=== PATIENT | male | born 1990 | race Caucasian/White ===

== ENCOUNTER 2018-02-05 10:42 | Observation (INO) ==
[2018-02-05] MEDS ORDERED: Ketorolac Inj 30 MG/ML (IVP) Vial IV.PUSH ONE (11:08)
[2018-02-05] MEDS ORDERED: Sod Chloride 0.9% Inj 1,000 ML IV.SIG ONE (11:08)
[2018-02-05 11:23] LABS: Baso # (Auto) 0.1 th/mm3 (0.0-0.2); Baso % (Auto) 1.1 % (0.0-2.0); Eos # (Auto) 0.2 th/mm3 (0.0-0.4); Eos % (Auto) 1.7 % (0.0-4.0); Hematocrit 48.6 % (39.0-51.0); Hemoglobin 16.1 gm/dL (13.0-17.0); Lymph # (Auto) 1.7 th/mm3 (1.0-4.8); Mean Corpuscular HGB Conc 33.2 % (32.0-36.0); Mean Corpuscular Hemoglobin 30.4 pg (27.0-34.0); Mean Corpuscular Volume 91.5 fL (80.0-100.0); Mean Platelet Volume 8.4 fL (7.0-11.0); Mono # (Auto) 0.7 th/mm3 (0.0-0.9); Mono % (Auto) 7.3 % (0.0-8.0); Neut # (Auto) 7.5 th/mm3 (1.8-7.7); Neut % (Auto) 72.9 % (16.0-70.0); Platelet Count 236 th/mm3 (150-450); Red Blood Count 5.31 mil/mm3 (4.50-5.90); Red Cell Distribution Width 11.9 % (11.6-17.2); White Blood Count 10.2 th/mm3 (4.0-11.0)
[2018-02-05 11:24] LABS: Bilirubin,Urine Negative (Negative); Clarity,Urine Clear (Clear); Color,Urine Yellow (Yellw/Straw); Glucose,Urine (UA) Negative (Negative); Leukocyte Esterase,Urine Negative (Negative); Nitrite,Urine Negative (Negative); Specific Gravity,Urine 1.025 (1.002-1.035); Urobilinogen,Urine 0.2 mg/dL (Less than 2)
[2018-02-05 11:32] LABS: Chloride 105 meq/L (98-107); Sodium 139 meq/L (136-145)
[2018-02-05 11:35] LABS: Activated Partial Thrombo Time 25.9 sec (24.3-30.1); Albumin 4.1 g/dL (3.4-5.0); Anion Gap 7 meq/L (5-15); Blood Urea Nitrogen 17 mg/dL (7-18); Calcium 8.7 mg/dL (8.5-10.1); Carbon Dioxide 27.2 meq/L (21.0-32.0); Glucose,Random 85 mg/dL (74-106); INR 1.1 Ratio; Lipase 85 U/L (73-393); Prothrombin Time 10.7 sec (9.8-11.6)
[2018-02-05 11:37] LABS: Potassium 4.4 meq/L (3.5-5.1); RBC,Urine 0-3 /hpf (0-3); Squamous Epithelial Cell,Urine 0-5 /hpf (0-5)
[2018-02-05 11:38] LABS: Alanine Aminotransferase 31 U/L (12-78); Aspartate Aminotransferase 33 U/L (15-37); Glomerular Filtration Rate 73 mL/min (>89)
[2018-02-05 11:40] LABS: Total Protein 7.9 g/dL (6.4-8.2)
[2018-02-05 11:41] LABS: Alkaline Phosphatase 48 U/L (45-117)
--- NOTE | 2018-02-05 12:10 | CT ---
EXAM DATE: 02/05/2018 11:36 AM EDT AGE/SEX: 27 years / Male INDICATIONS: Right lower quadrant pain. CLINICAL DATA: This is the patient's initial encounter. Patient reports that signs and symptoms have been present for 1 day and indicates a pain score of 6/10. MEDICAL/SURGICAL HISTORY: None. None. ORAL CONTRAST: No oral contrast ingested. RADIATION DOSE: 7.30 CTDI (mGy) COMPARISON: No prior exams available for comparison. TECHNIQUE: Multiple contiguous axial images were obtained through the abdomen and pelvis following b olus infusion of 90 ml Omnipaque 350 (iohexol) nonionic water-soluble contrast as a single exam dos e. No oral contrast ingested. Using automated exposure control and adjustment of the mA and/or kV ac cording to patient size, radiation dose was kept as low as reasonably achievable to obtain optimal di agnostic quality images. DICOM format image data is available electronically for review and comparis on. FINDINGS: Lung bases are clear. Liver, gallbladder, kidneys, adrenals, spleen, pancreas, small bowel unremarkab le. There is inflammatory stranding in the right lower quadrant surrounding an abnormally dilated and thickened appendix measuring up to 1.1 cm in maximal dimension. There is free fluid in the pelvis. T he appearance is characteristic of acute appendicitis. There is no abscess. No free air. The osseous structures are intact. CONCLUSION: 1. Acute appendicitis without free air. 2. A small amount of free fluid is noted in the pelvis. Electronically signed by: James Cifuentes MD 02/05/2018 12:08 PM EDT
[2018-02-05] MEDS ORDERED: Morphine Sulfate Inj 2 MG/ML Vial IV.PUSH PRN (12:36)
--- NOTE | 2018-02-05 12:38 | ED ---
HPI General Chief complaint: Abdominal Pain Stated complaint: Rt low abd pain x 1 day Time Seen by Provider: 02/05/18 11:04 Source: patient Mode of arrival: ambulatory Limitations: no limitations History of Present Illness HPI narrative: Patient is a 27 year old male who comes in complaining of right lower quadrant abdominal pain. He says it started yesterday and has been getting progressively worse. He denies nausea or vomiting. He denies any fever or chills. He says he had a normal bowel movement. He denies any urinary symptoms. Severity is mild to moderate. Related Data Home Medications Medication Instructions Recorded Confirmed No Known Home Medications 02/05/18 02/05/18 Allergies Allergy/AdvReac Type Severity Reaction Status Date / Time Penicillins Allergy Severe unknown Verified 02/05/18 10:55 Review of Systems ROS: all other systems reviewed are negative Constitutional Denies chills and Denies fever(s) ENT Denies dizziness Cardiovascular Denies chest pain and Denies dyspnea Respiratory Denies dyspnea Gastrointestinal Reports abdominal pain, Denies nausea and Denies vomiting Musculoskeletal Denies myalgias and Denies arthralgias Integumentary/Breasts Denies sores and Denies wounds Neurologic Denies focal weakness and Denies numbness PMFSH Medical History Medical History Hx of wisdom tooth extraction (Acute) Patient denies medical problems (Acute) Surgical History Surgical History History of repair of ACL (Acute) Social History Social History Substance History: No History of Abuse Second Hand Smoke Exposure: No Smoking Status: Former smoker Tobacco Type: Cigarettes How Often Do You Have a Drink Containing Alcohol: 2 to 4 times a month Recent Travel in [facility] within the Last 8 Weeks: No Recent Out of Country Travel within the Last 8 Weeks: No Immunization History Tetanus Immunization: Unsure Exam Narrative Exam Narrative: GENERAL: Awake and alert, no acute distress. SKIN: Focused skin assessment warm/dry. No wounds or signs of infection. HEAD: Atraumatic. Normocephalic. EYES: Pupils equal and round. No scleral icterus. ENT: Mucous membranes pink and moist. NECK: Trachea midline. No JVD. CARDIOVASCULAR: Regular rate and rhythm. No murmur appreciated. RESPIRATORY: No accessory muscle use. Clear to auscultation. Breath sounds equal bilaterally. GASTROINTESTINAL: Abdomen soft, nondistended. Tender to palpation of the right lower quadrant. No rebound or guarding. MUSCULOSKELETAL: No obvious deformities. No clubbing. No cyanosis. No edema. NEUROLOGICAL: Awake and alert. No obvious cranial nerve deficits. Motor grossly within normal limits. Normal speech. PSYCHIATRIC: Appropriate mood and affect; insight and judgment normal. Course Initial Documented Vital Signs Temperature 98 F 02/05/18 10:50 Pulse Rate 64 02/05/18 10:50 Respiratory Rate 16 02/05/18 10:50 Blood Pressure 136/60 02/05/18 10:50 Pulse Oximetry 97 02/05/18 10:50 Last Documented Vital Signs Temperature 98 F 02/05/18 10:50 Pulse Rate 64 02/05/18 10:50 Respiratory Rate 16 02/05/18 10:50 Blood Pressure 136/60 02/05/18 10:50 Pulse Oximetry 97 02/05/18 10:50 Medical Decision Making MDM Narrative Medical decision making narrative: Patient is a 27-year-old male with no medical history, who comes in complaining of right lower quadrant abdominal pain. Exam shows tenderness to palpation of the right lower quadrant. IV established, labs sent. Labs show no acute abnormalities. CT abdomen pelvis performed shows acute appendicitis. Patient given Rocephin and Flagyl. Given pain medicine. I spoke with the general surgeon, Dr. Godoy, who agrees to take the patient on his service. He will try to arrange for surgery this afternoon. Medical Screen Exam Complete: Yes Emergency Medical Condition: Yes Differential Diagnosis Differential Diagnosis: Appendicitis versus colitis versus UTI Medical Records Medical records reviewed: Yes I reviewed the patient's medical records. Lab Data Lab results reviewed: Yes I reviewed the patient's lab results. Result diagrams: 02/05/18 11:10 02/05/18 11:10 Lab Results 02/05/18 02/05/18 02/05/18 Range/Units 11:10 11:10 11:10 CBC w Diff Auto diff final WBC 10.2 (4.0-11.0) th/mm3 RBC 5.31 (4.50-5.90) mil/mm3 Hgb 16.1 (13.0-17.0) gm/dL Hct 48.6 (39.0-51.0) % MCV 91.5 (80.0-100.0) fL MCH 30.4 (27.0-34.0) pg MCHC 33.2 (32.0-36.0) % RDW 11.9 (11.6-17.2) % Plt Count 236 (150-450) th/mm3 MPV 8.4 (7.0-11.0) fL Neut % (Auto) 72.9 H (16.0-70.0) % Lymph % (Auto) 17.0 (9.0-44.0) % [place] % (Auto) 7.3 (0.0-8.0) % Eos % (Auto) 1.7 (0.0-4.0) % Baso % (Auto) 1.1 (0.0-2.0) % Neut # (Auto) 7.5 (1.8-7.7) th/mm3 Lymph # (Auto) 1.7 (1.0-4.8) th/mm3 [place] # (Auto) 0.7 (0.0-0.9) th/mm3 Eos # (Auto) 0.2 (0.0-0.4) th/mm3 Baso # (Auto) 0.1 (0.0-0.2) th/mm3 WBC Differential . Differential Comment . PT 10.7 (9.8-11.6) sec INR 1.1 Ratio APTT 25.9 (24.3-30.1) sec Sodium 139 (136-145) meq/L Potassium 4.4 (3.5-5.1) meq/L Chloride 105 (98-107) meq/L Carbon Dioxide 27.2 (21.0-32.0) meq/L Anion Gap 7 (5-15) meq/L BUN 17 (7-18) mg/dL Creatinine 1.20 (0.60-1.30) mg/dL Estimated GFR 73 L (>89) mL/min Random Glucose 85 (74-106) mg/dL Calcium 8.7 (8.5-10.1) mg/dL Total Bilirubin 0.7 (0.2-1.0) mg/dL AST 33 (15-37) U/L ALT 31 (12-78) U/L Alkaline Phosphatase 48 (45-117) U/L Total Protein 7.9 (6.4-8.2) g/dL Albumin 4.1 (3.4-5.0) g/dL Lipase 85 (73-393) U/L Ur Collection Type Urine Color (Yellw/Straw) Urine Clarity (Clear) Urine pH (5.0-8.5) Ur Specific [place] (1.002-1.035) Urine Protein (Neg-Trace) mg/dL Urine Glucose (UA) (Negative) mg/dL Urine Ketones (Negative) mg/dL Urine Occult Blood (Negative) Urine Nitrate (Negative) Urine Bilirubin (Negative) Urine Urobilinogen (Less than 2) mg/dL Ur Leukocyte Esterase (Negative) Urine RBC (0-3) /hpf Ur Squamous Epith Cells (0-5) /hpf Micro UA Comment Ur Microscopic Review Urine Culture Comments 02/05/18 Range/Units 11:10 CBC w Diff WBC (4.0-11.0) th/mm3 RBC (4.50-5.90) mil/mm3 Hgb (13.0-17.0) gm/dL Hct (39.0-51.0) % MCV (80.0-100.0) fL MCH (27.0-34.0) pg MCHC (32.0-36.0) % RDW (11.6-17.2) % Plt Count (150-450) th/mm3 MPV (7.0-11.0) fL Neut % (Auto) (16.0-70.0) % Lymph % (Auto) (9.0-44.0) % [place] % (Auto) (0.0-8.0) % Eos % (Auto) (0.0-4.0) % Baso % (Auto) (0.0-2.0) % Neut # (Auto) (1.8-7.7) th/mm3 Lymph # (Auto) (1.0-4.8) th/mm3 [place] # (Auto) (0.0-0.9) th/mm3 Eos # (Auto) (0.0-0.4) th/mm3 Baso # (Auto) (0.0-0.2) th/mm3 WBC Differential Differential Comment PT (9.8-11.6) sec INR Ratio APTT (24.3-30.1) sec Sodium (136-145) meq/L Potassium (3.5-5.1) meq/L Chloride (98-107) meq/L Carbon Dioxide (21.0-32.0) meq/L Anion Gap (5-15) meq/L BUN (7-18) mg/dL Creatinine (0.60-1.30) mg/dL Estimated GFR (>89) mL/min Random Glucose (74-106) mg/dL Calcium (8.5-10.1) mg/dL Total Bilirubin (0.2-1.0) mg/dL AST (15-37) U/L ALT (12-78) U/L Alkaline Phosphatase (45-117) U/L Total Protein (6.4-8.2) g/dL Albumin (3.4-5.0) g/dL Lipase (73-393) U/L Ur Collection Type Clean catch Urine Color Yellow (Yellw/Straw) Urine Clarity Clear (Clear) Urine pH 6.0 (5.0-8.5) Ur Specific [place] 1.025 (1.002-1.035) Urine Protein Negative (Neg-Trace) mg/dL Urine Glucose (UA) Negative (Negative) mg/dL Urine Ketones Negative (Negative) mg/dL Urine Occult Blood Negative (Negative) Urine Nitrate Negative (Negative) Urine Bilirubin Negative (Negative) Urine Urobilinogen 0.2 (Less than 2) mg/dL Ur Leukocyte Esterase Negative (Negative) Urine RBC 0-3 (0-3) /hpf Ur Squamous Epith Cells 0-5 (0-5) /hpf Micro UA Comment Culture not ind Ur Microscopic Review Microscopic reviewed Urine Culture Comments Culture not ind Imaging Data Radiologist's impression: Abdomen/Pelvis CT 02/05/18 11:08 CONCLUSION: 1. Acute appendicitis without free air. 2. A small amount of free fluid is noted in the pelvis. Discharge Plan Discharge Disposition Patient Disposition: 30 Still Patient Discharge Condition Condition: Stable Discharge Details Diagnosis: Acute appendicitis Physicians Team ED Provider: Darcie Rae Primary Care Provider: Primary Care Physici,No Rxs /Orders / Referrals /Forms Prescriptions: No Action No Known Home Medications RF: 0 Status ED Status: With Doctor
[2018-02-05] MEDS ORDERED: Bupivacaine/Epinephrine PF Inj 0.5% 30 ML Vial ONE (13:33)
[2018-02-05] MEDS ORDERED: fentaNYL Citrate Inj 250 MCG/5 ML Ampul ONE (13:48)
[2018-02-05] MEDS ORDERED: Metoprolol Tartrate 25 MG Tablet PO ONE (13:53)
[2018-02-05] MEDS ORDERED: Chlorhexidine Gluconate 2% 1 Pack (2 Cloths) TOPICAL ONE (13:53)
[2018-02-05] MEDS ORDERED: Sodium Chlor 0.9% Inj 500 ML IV.SIG SCH (14:00)
[2018-02-05] MEDS ORDERED: Post-op Orders (for Pharmacy) OTHER ONE (14:42)
[2018-02-05] MEDS ORDERED: Morphine Sulfate Inj 8 MG/ML Vial IV.PUSH PRN (14:42)
[2018-02-05] MEDS ORDERED: Bisacodyl 10 MG Supp RECTAL PRN (14:42)
[2018-02-05] MEDS ORDERED: Promethazine 25 MG Supp RECTAL PRN (14:42)
[2018-02-05] MEDS ORDERED: Neostigmine Inj 5 MG/5 ML Syringe IV.PUSH ONE (14:49)
--- NOTE | 2018-02-05 15:30 | P.OP ---
- Preoperative Diagnosis (1) Acute appendicitis - Postoperative Diagnosis (1) Acute appendicitis Date of procedure: 02/05/18 Procedure: lap appy Anesthesia: GETA Surgeon: Sherif Stauffer MD Estimated blood loss (mL): 10 Pathology: other (appendix) Operation and Findings: acute appendicitis
[2018-02-05] MEDS: Sod Chloride 0.9% Inj 1,000 ML IV.CONT SCH (15:32)
[2018-02-05] MEDS: Ciprofloxacin 400 MG/200 ML 400 MG/200 ML PIGGYBACK IV.SIG SCH (16:28)
[2018-02-05] MEDS: Ketorolac Inj 30 MG/ML (IVP) Vial IV.PUSH SCH (16:33)
--- NOTE | 2018-02-05 17:47 | MP ---
cc: Sherif Stauffer MD DATE OF OPERATION: 02/05/2018 PREOPERATIVE DIAGNOSIS: Acute appendicitis. POSTOPERATIVE DIAGNOSIS: Acute appendicitis. PROCEDURE PERFORMED: Laparoscopic appendectomy. SURGEON: Sherif Stauffer MD MILK DRIER: None. ANESTHESIA: GETA. IV FLUIDS: Per anesthesia. ESTIMATED BLOOD LOSS: 10 mL. DRAINS: None. COMPLICATIONS: None. WOUND CLASSIFICATION: Clean/contaminated. SPECIMENS: Appendix. INDICATIONS: The patient is a 27-year-old male who presents with acute onset of right lower quadrant abdominal pain. The patient notes yesterday the pain got significantly worse, seen by primary care, who directed him to go to the emergency department with CT evaluation showing acute appendicitis. Decision for operative intervention. DETAILS OF PROCEDURE: The patient was taken to the operating suite, placed in supine position. He was prepped and draped in the usual sterile fashion after induction of general endotracheal anesthesia. Brief timeout was done, stating correct patient, procedure and surgical site. We were all in agreement with this. Attention was first directed to the umbilicus where local anesthetic was injected. Stab pili incision was made with a #11 blade. Veress needle placed and intra-abdominal placement confirmed with saline drop test. The abdomen was insufflated to 15 mm pneumoperitoneum. Two other ports were placed, one suprapubic, 5 mm, followed by a left lower quadrant 12 mm. The patient was placed in Trendelenburg and airplaned left. The right lower quadrant was examined. The appendix was identified, noted to be indurated and nonperforated. The appendix was grasped. Adhesions to mobilize the appendix were lysed. The base of the mesoappendix was grasped and a window was made in the base of the mesoappendix. This was done with [place] and Bovie cautery. An Endo-VANI 35 stapler was used to transect the base of the appendix. The base of mesoappendix was also transected with Endo-VANI 35. Hemostasis was obtained with electrocautery. A small piece of SNoW was placed in the wound bed. The patient tolerated the procedure well. The patient was flattened, pneumoperitoneum was released, and all ports were removed. The left lower quadrant port was closed with 0 Vicryl [id number]. 4-0 Monocryl was placed all subcuticular incisions. Local anesthetic injected in all incisions. Sterile dressings including Mastisol and Steri-Strips were placed. There were no intraoperative complications. All lap and instrument counts were correct at the end of the procedure. The patient was extubated and taken to the PACU. MD DAMIEN Lopes/zenon , 04:23 PM , 04:32 PM
--- NOTE | 2018-02-05 19:08 | P.HPGS ---
History of Present Illness Service: General surgery Primary Care Physician: No Primary Care Physician Chief Complaint: right lower quadrant abdominal pain History of Present Illness: 27 year old male who comes in complaining of right lower quadrant abdominal pain. He says it started yesterday and has been getting progressively worse. The pain was initially 5/10, now 8/10, Sharp, radiation to the right lower quadrant. Worse with movement better with sitting still. He denies nausea or vomiting. He denies any fever or chills. He has never had pain like this before. He came to the ED with finding of WBC 10.2, CT showing acute appendicitis. - Diagnosis (1) Acute appendicitis Review of Systems Constitutional: Denies chills, Denies lack of energy Ears, Nose, Mouth, and Throat: Reports bleeding gums, Denies abnormal hearing Cardiovascular: Denies chest pain, Denies chest pain at rest Respiratory: Denies chest congestion, Denies cough Gastrointestinal: Reports abdominal pain, Denies change in stools Genitourinary: Denies blood in urine, Denies difficulty urinating Musculoskeletal: Denies abnormal walking, Denies back pain Skin/Breast: Denies change in hair, Denies change in skin color Neurologic: Denies abnormal hearing, Denies abnormal movements Psychiatric: Denies abnormal sleep pattern, Denies anxiety Endocrine: Denies cold intolerance, Denies flushing PMFSH - History History Provided By: Patient - Medical / Surgical Hx Neg / Unobtainable Medical Problems Denied: Yes (ALLERGIES: PCN) - Medical History Medical History: Medical History (Last Reviewed 02/05/18 @ 22:53 by Sherif Stauffer MD) Hx of wisdom tooth extraction Patient denies medical problems - Surgical History Surgical History: Surgical History (Last Reviewed 02/05/18 @ 22:53 by Sherif Stauffer MD) History of repair of ACL - Family History Family History: Family History (Last Updated 02/05/18 @ 22:54 by Sherif Stauffer MD) Other No family history of cancer No family history of cardiac disease - Tobacco History Second Hand Smoke Exposure: No Tobacco Use In Past 30 Days: No Smoking Status: Never smoker Tobacco Type: Cigarettes - Alcohol History How Often Do You Have a Drink Containing Alcohol: 2 to 4 times a month - Substance Use History Substance History: No History of Abuse - Travel History Recent Travel in the [facility] Within the Last 8 Weeks: No Recent Travel Out of the Country Within the Last 8 Weeks: No - Immunization History Tetanus Immunization: Unsure Medications and Allergies Active Medications: Active Medications Hydrocodone Bitart/Acetaminophen ([place] 5/325) 2 tab PO Q4H PRN PRN Reason: PAIN SCALE 6 TO 10 Al Hydroxide/Mg Hydroxide (Milk Of Magnesia Liq) 30 ml PO Q12H PRN PRN Reason: Mild Constipation Bisacodyl (Dulcolax Supp) 10 mg RECTAL DAILY PRN PRN Reason: SEVERE CONSITIPATION Diphenhydramine HCl (Benadryl Inj) 50 mg IV.PUSH Q6H PRN PRN Reason: ITCHING Lactated Ringer's (Lr 1000 Ml Inj) 1,000 mls @ 30 mls/hr IV.SIG .Q24H AC Stop: 02/06/18 13:59 Last Infusion: 02/05/18 16:57 Dose: Infused Metronidazole/Sodium Chloride (Flagyl 500 Mg Inj) 100 mls @ 200 mls/hr IV.SIG Q8H AC Stop: 02/06/18 12:29 Sodium Chloride (Ns Inj) 1,000 mls @ 100 mls/hr IV.CONT .Q10H AC Last Admin: 02/05/18 15:32 Dose: 100 mls/hr Ciprofloxacin/Dextrose (Cipro 400 Mg/200 Ml Inj) 400 mg in 200 mls @ 200 mls/ hr IV.SIG Q12H AC Last Infusion: 02/05/18 18:00 Dose: Infused Ketorolac Tromethamine (Toradol Inj) 15 mg IV.PUSH Q6H AC Stop: 02/10/18 15:59 Last Admin: 02/05/18 16:33 Dose: 15 mg Lactulose (Lactulose Liq) 30 ml PO DAILY PRN PRN Reason: SEVERE CONSITIPATION Morphine Sulfate (Morphine Inj) 2 mg IV.PUSH Q3H PRN PRN Reason: ABDOMINAL PAIN Stop: 02/05/18 23:59 Morphine Sulfate (Morphine Inj) 2 mg IV.PUSH Q2H PRN PRN Reason: BREAKTHROUGH PAIN Ondansetron HCl (Zofran Odt) 4 mg PO Q6H PRN PRN Reason: NAUSEA OR VOMITING Ondansetron HCl (Zofran Inj) 4 mg IV.PUSH Q6H PRN PRN Reason: NAUSEA OR VOMITING Promethazine HCl (Phenergan) 25 mg PO Q6H PRN PRN Reason: NAUSEA OR VOMITING Promethazine HCl (Phenergan Supp) 25 mg RECTAL Q6H PRN PRN Reason: NAUSEA OR VOMITING Senna/Docusate Sodium (Talisha-Colace) 1 tab PO BID AC Sennosides (Senokot) 17.2 mg PO Q12H PRN PRN Reason: Moderate Constipation Sodium Chloride (Ns Flush) 2 ml IV.FLUSH PRN PRN PRN Reason: FLUSH AFTER USING IV ACCESS Allergies Allergy/AdvReac Type Severity Reaction Status Date / Time Penicillins Allergy Severe unknown Verified 02/05/18 10:55 Home Medications Medication Instructions Recorded Confirmed Type No Known Home Medications 02/05/18 02/05/18 History Exam Vital signs: Vital Signs 02/05/18 10:50 02/05/18 13:48 02/05/18 15:33 Temperature 98 F 98.1 F 98.0 F Pulse Rate 64 57 L 49 L Respiratory Rate 16 16 16 Blood Pressure 136/60 116/62 130/64 Pulse Oximetry 97 97 97 02/05/18 15:35 02/05/18 15:39 02/05/18 15:54 Temperature Pulse Rate 45 L 46 L 52 L Respiratory Rate 16 16 Blood Pressure 117/65 109/68 Pulse Oximetry 100 100 02/05/18 16:13 02/05/18 16:16 02/05/18 17:00 Temperature 97.7 F 96.5 F L Pulse Rate 60 52 L 81 Respiratory Rate 16 22 Blood Pressure 108/66 134/88 Pulse Oximetry 97 97 Intake & Output 02/04/18 02/05/18 02/05/18 18:59 06:59 18:59 Intake Total 3350 / 3350 Output Total Balance 3340 / 3340 Weight 81.9 kg Intake: IV 2400 / 2400 Cipro 400 MG/200 ML Inj 400 mg 200 / 200 In 200 ml @ 200 mls/hr IV.SIG Q12H AC Rx#:[id number] LR 1000 mL Inj 1,000 ML @ 30 800 / 800 mls/hr IV.SIG .Q24H AC Rx#: [id number] NS Inj 1,000 ML @ Wide Open IV. 1000 / 1000 SIG BOLUS ONE Rx#:[id number] NS Inj 500 ML @ 30 mls/hr IV. 200 / 200 SIG .Q10H AC Rx#:[id number] Rocephin Inj 2,000 MG In NS Inj 100 / 100 100 ML @ 200 mls/hr IV.SIG ONCE ONE Rx#:[id number] Flagyl 500 MG Inj 100 ML @ 100 100 / 100 mls/hr IV.SIG ONCE ONE Rx#: [id number] Oral 100 / 100 Anesthesia Amount 800 / 800 Other 50 / 50 Output: Estimated Blood Loss Other: Other Intake Source Saline Solution # Voids 0 Weight On Admission 81.9 kg - Constitutional no acute distress - Routine HEENT Exam Head: Present: normocephalic, atraumatic - Routine Neck Exam Present: supple - Routine Chest/Breast/Axilla Exam Chest wall: Absent: tenderness - Routine Respiratory Exam Present: CTA bilaterally. Absent: accessory muscle use - Routine Cardiovascular Exam Present: RRR, S1, S2 - Routine Abdominal Exam Present: soft (+ttp right lower quadrant, localized rebound) - Routine Extremities Exam Present: full ROM. Absent: edema - Routine Skin Exam Present: intact, dry - Routine Neurological Exam Present: alert, oriented X3. Absent: abnormal gait Results - Labs 02/05/18 11:10 02/05/18 11:10 Laboratory Results - last 24 hr 02/05/18 02/05/18 02/05/18 11:10 11:10 11:10 CBC w Diff Auto diff final WBC 10.2 RBC 5.31 Hgb 16.1 Hct 48.6 MCV 91.5 MCH 30.4 MCHC 33.2 RDW 11.9 Plt Count 236 MPV 8.4 Neut % (Auto) 72.9 H Lymph % (Auto) 17.0 [place] % (Auto) 7.3 Eos % (Auto) 1.7 Baso % (Auto) 1.1 Neut # (Auto) 7.5 Lymph # (Auto) 1.7 [place] # (Auto) 0.7 Eos # (Auto) 0.2 Baso # (Auto) 0.1 WBC Differential . Differential Comment . PT 10.7 INR 1.1 APTT 25.9 Sodium 139 Potassium 4.4 Chloride 105 Carbon Dioxide 27.2 Anion Gap 7 BUN 17 Creatinine 1.20 Estimated GFR 73 L Random Glucose 85 Calcium 8.7 Total Bilirubin 0.7 AST 33 ALT 31 Alkaline Phosphatase 48 Total Protein 7.9 Albumin 4.1 Lipase 85 Ur Collection Type Urine Color Urine Clarity Urine pH Ur Specific [place] Urine Protein Urine Glucose (UA) Urine Ketones Urine Occult Blood Urine Nitrate Urine Bilirubin Urine Urobilinogen Ur Leukocyte Esterase Urine RBC Ur Squamous Epith Cells Micro UA Comment Ur Microscopic Review Urine Culture Comments Blood Type Antibody Screen 02/05/18 02/05/18 11:10 13:00 CBC w Diff WBC RBC Hgb Hct MCV MCH MCHC RDW Plt Count MPV Neut % (Auto) Lymph % (Auto) [place] % (Auto) Eos % (Auto) Baso % (Auto) Neut # (Auto) Lymph # (Auto) [place] # (Auto) Eos # (Auto) Baso # (Auto) WBC Differential Differential Comment PT INR APTT Sodium Potassium Chloride Carbon Dioxide Anion Gap BUN Creatinine Estimated GFR Random Glucose Calcium Total Bilirubin AST ALT Alkaline Phosphatase Total Protein Albumin Lipase Ur Collection Type Clean catch Urine Color Yellow Urine Clarity Clear Urine pH 6.0 Ur Specific [place] 1.025 Urine Protein Negative Urine Glucose (UA) Negative Urine Ketones Negative Urine Occult Blood Negative Urine Nitrate Negative Urine Bilirubin Negative Urine Urobilinogen 0.2 Ur Leukocyte Esterase Negative Urine RBC 0-3 Ur Squamous Epith Cells 0-5 Micro UA Comment Culture not ind Ur Microscopic Review Microscopic reviewed Urine Culture Comments Culture not ind Blood Type O Negative Antibody Screen Negative - Imaging Imaging: ITS Impressions Abdomen/Pelvis CT 02/05/18 11:08 CONCLUSION: 1. Acute appendicitis without free air. 2. A small amount of free fluid is noted in the pelvis. Caprini VTE Risk Assessment Caprini Risk Assessment Model: Point Value = 1 Point Value = 2 Point Value = 3 Point Value = 5 Age 41-60 Minor surgery BMI > 25 kg/m2 Swollen legs Varicose veins or History of unexplained or recurrent spontaneous Oral contraceptives or hormone replacement Sepsis (< 1 month) Serious lung disease, including pneumonia (< 1 month) Abnormal pulmonary function Acute myocardial infarction Congestive heart failure (< 1 month) History of inflammatory bowel disease Medical patient at bed rest Age 61-74 Arthroscopic surgery Major open surgery (> 45 min) Laparoscopic surgery (> 45 min) Malignancy Confined to bed (> 72 hours) Immobilizing plaster cast Central venous access Age >= 75 History of VTE Family history of VTE Factor V Leiden Prothrombin [id number] Lupus anticoagulant Anticardiolipin antibodies Elevated serum homocysteine Heparin-induced thrombocytopenia Other congenital or acquired thrombophilia Stroke (< 1 month) Elective arthroplasty Hip, pelvis, or leg fracture Acute spinal cord injury (< 1 month) Prophylaxis Regimen: Total Risk Factor Score Risk Level Prophylaxis Regimen 0-1 Low Early ambulation 2 Moderate Order ONE of the following: *Sequential Compression Device (SCD) *Heparin 5000 units SQ BID 3-4 Higher Order ONE of the following medications: *Heparin 5000 units SQ TID *Enoxaparin/Lovenox 40 mg SQ daily (WT < 150 kg, CrCl > 30 mL/min) *Enoxaparin/Lovenox 30 mg SQ daily (WT < 150 kg, CrCl > 10-29 mL/min) *Enoxaparin/Lovenox 30 mg SQ BID (WT < 150 kg, CrCl > 30 mL/min) AND/OR *Sequential Compression Device (SCD) 5 or more Highest Order ONE of the following medications: *Heparin 5000 units SQ TID (Preferred with Epidurals) *Enoxaparin/Lovenox 40 mg SQ daily (WT < 150 kg, CrCl > 30 mL/min) *Enoxaparin/Lovenox 30 mg SQ daily (WT < 150 kg, CrCl > 10-29 mL/min) *Enoxaparin/Lovenox 30 mg SQ BID (WT < 150 kg, CrCl > 30 mL/min) AND *Sequential Compression Device (SCD) Assessment and Plan - Assessment (1) Acute appendicitis Code(s): K35.80 - Unspecified acute appendicitis Status: Acute Qualifiers: Acute appendicitis type: unspecified acute appendicitis type Qualified Code (s): K35.80 - Unspecified acute appendicitis - Plan npo OR today for lap Appy discussed with patient in detail abx cipro/flagyl IVF pain control ambulate - Attending Attestation The exam, history, and the medical decision-making described in the above note were completed with the assistance of the mid-level provider. I reviewed and agree with the findings presented. I attest that I had a [id number] encounter with the patient on the same day, and personally performed and documented my assessment and findings in the medical record. H&P: Quality - VTE Deep Vein Thrombosis/Pulmonary Embolism Present on Admission: No
[2018-02-05 20:53] VITALS: RESP 20
[2018-02-05] MEDS ORDERED: Senna/Docusate Sodium 8.6/50 MG Tablet PO SCH (21:00)
[2018-02-06] MEDS: Ketorolac Inj 30 MG/ML (IVP) Vial IV.PUSH SCH ×2 (00:06→05:17)
[2018-02-06 00:27] VITALS: TEMP 96.9; O2SAT 98
[2018-02-06] MEDS: Sod Chloride 0.9% Inj 1,000 ML IV.CONT SCH (02:37)
[2018-02-06 04:48] VITALS: BP 97/48; PULSE 67
[2018-02-06] MEDS: Ciprofloxacin 400 MG/200 ML 400 MG/200 ML PIGGYBACK IV.SIG SCH (05:20)
--- NOTE | 2018-02-06 07:08 | P.DS ---
Date of admission: 02/05/18 12:36 Primary care physician: No Primary Care Physician Attending physician on discharge: Sherif Stauffer Brief History from admission: 27 year old male who comes in complaining of right lower quadrant abdominal pain. He says it started yesterday and has been getting progressively worse. The pain was initially 5/10, now 8/10, Sharp, radiation to the right lower quadrant. Worse with movement better with sitting still. He denies nausea or vomiting. He denies any fever or chills. He has never had pain like this before. He came to the ED with finding of WBC 10.2, CT showing acute appendicitis. DS: Diagnosis - Discharge Diagnosis (1) Acute appendicitis Status: Acute DS: Summary Hospital Course: This is a 27 year old male POD1 laparoscopic appendectomy. The patient's pain was controlled using oral pain medications. He was able to tolerate a regular diet. The patient will follow up in the office next Saturday. - Time Spent with Patient Total time spent providing and/or coordinating discharge services: Less than 30 minutes - Quality: VTE Deep Vein Thrombosis/Pulmonary Embolism Present on Admission: No Exam Vital signs: Vital Signs 02/05/18 10:50 02/05/18 13:48 02/05/18 15:33 Temperature 98 F 98.1 F 98.0 F Pulse Rate 64 57 L 49 L Respiratory Rate 16 16 16 Blood Pressure 136/60 116/62 130/64 Pulse Oximetry 97 97 97 02/05/18 15:35 02/05/18 15:39 02/05/18 15:54 Temperature Pulse Rate 45 L 46 L 52 L Respiratory Rate 16 16 Blood Pressure 117/65 109/68 Pulse Oximetry 100 100 02/05/18 16:13 02/05/18 16:16 02/05/18 17:00 Temperature 97.7 F 96.5 F L Pulse Rate 60 52 L 81 Respiratory Rate 16 22 Blood Pressure 108/66 134/88 Pulse Oximetry 97 97 02/05/18 20:00 02/06/18 00:00 02/06/18 04:00 Temperature 97.4 F L 96.9 F L Pulse Rate 60 54 L 67 Respiratory Rate 20 20 Blood Pressure 101/54 L 90/51 L 97/48 L Pulse Oximetry 96 98 Intake & Output 02/05/18 02/06/18 02/06/18 18:59 06:59 18:59 Intake Total 3350 / 3350 1979 Output Total Balance 3340 / 3340 1979 Weight 81.9 kg 84 kg Intake: IV 2400 / 2400 1500 / 1500 NS Inj 1,000 ML @ 100 mls/hr IV 1200 / 1200 .CONT .Q10H AC Rx#:[id number] Cipro 400 MG/200 ML Inj 400 mg 200 / 200 200 / 200 In 200 ml @ 200 mls/hr IV.SIG Q12H AC Rx#:[id number] LR 1000 mL Inj 1,000 ML @ 30 800 / 800 mls/hr IV.SIG .Q24H AC Rx#: [id number] NS Inj 1,000 ML @ Wide Open IV. 1000 / 1000 SIG BOLUS ONE Rx#:[id number] NS Inj 500 ML @ 30 mls/hr IV. 200 / 200 SIG .Q10H AC Rx#:[id number] Rocephin Inj 2,000 MG In NS Inj 100 / 100 100 ML @ 200 mls/hr IV.SIG ONCE ONE Rx#:[id number] Flagyl 500 MG Inj 100 ML @ 200 100 / 100 100 / 100 mls/hr IV.SIG Q8H AC Rx#: [id number] Oral 100 / 100 480 / 480 Anesthesia Amount 800 / 800 Other 50 / 50 Output: Estimated Blood Loss Other: Other Intake Source Saline Solution # Voids 0 4 Weight On Admission 81.9 kg Narrative: Alert and awake Abd: soft; lap sites c/d/i; mild tenderness around umbilicus Results Procedures completed during hospitalization: Laparoscopic appendectomy Pending studies at discharge: Pending at discharge 02/05/18 Surgical [PTH] Routine Labs on day of discharge: Labs from last 24 hours 02/05/18 02/05/18 02/05/18 13:00 11:10 11:10 CBC w Diff WBC RBC Hgb Hct MCV MCH MCHC RDW Plt Count MPV Neut % (Auto) Lymph % (Auto) [place] % (Auto) Eos % (Auto) Baso % (Auto) Neut # (Auto) Lymph # (Auto) [place] # (Auto) Eos # (Auto) Baso # (Auto) WBC Differential Differential Comment PT INR APTT Sodium 139 Potassium 4.4 Chloride 105 Carbon Dioxide 27.2 Anion Gap 7 BUN 17 Creatinine 1.20 Estimated GFR 73 L Random Glucose 85 Calcium 8.7 Total Bilirubin 0.7 AST 33 ALT 31 Alkaline Phosphatase 48 Total Protein 7.9 Albumin 4.1 Lipase 85 Ur Collection Type Clean catch Urine Color Yellow Urine Clarity Clear Urine pH 6.0 Ur Specific [place] 1.025 Urine Protein Negative Urine Glucose (UA) Negative Urine Ketones Negative Urine Occult Blood Negative Urine Nitrate Negative Urine Bilirubin Negative Urine Urobilinogen 0.2 Ur Leukocyte Esterase Negative Urine RBC 0-3 Ur Squamous Epith Cells 0-5 Micro UA Comment Culture not ind Ur Microscopic Review Microscopic reviewed Urine Culture Comments Culture not ind Blood Type O Negative Antibody Screen Negative 02/05/18 02/05/18 11:10 11:10 CBC w Diff Auto diff final WBC 10.2 RBC 5.31 Hgb 16.1 Hct 48.6 MCV 91.5 MCH 30.4 MCHC 33.2 RDW 11.9 Plt Count 236 MPV 8.4 Neut % (Auto) 72.9 H Lymph % (Auto) 17.0 [place] % (Auto) 7.3 Eos % (Auto) 1.7 Baso % (Auto) 1.1 Neut # (Auto) 7.5 Lymph # (Auto) 1.7 [place] # (Auto) 0.7 Eos # (Auto) 0.2 Baso # (Auto) 0.1 WBC Differential . Differential Comment . PT 10.7 INR 1.1 APTT 25.9 Sodium Potassium Chloride Carbon Dioxide Anion Gap BUN Creatinine Estimated GFR Random Glucose Calcium Total Bilirubin AST ALT Alkaline Phosphatase Total Protein Albumin Lipase Ur Collection Type Urine Color Urine Clarity Urine pH Ur Specific [place] Urine Protein Urine Glucose (UA) Urine Ketones Urine Occult Blood Urine Nitrate Urine Bilirubin Urine Urobilinogen Ur Leukocyte Esterase Urine RBC Ur Squamous Epith Cells Micro UA Comment Ur Microscopic Review Urine Culture Comments Blood Type Antibody Screen - Impressions ITS Impressions Abdomen/Pelvis CT 02/05/18 11:08 CONCLUSION: 1. Acute appendicitis without free air. 2. A small amount of free fluid is noted in the pelvis. Discharge Plan - Discharge Disposition Patient Disposition: 01 Discharge Home - Discharge Condition Condition: Stable - Discharge Order Discharge Orders: Discharge Order (Routine); Ordered 02/06/18 Ordered By: Homa Andrade - Discharge Details Anticipated Discharge Date: 02/06/18 Discharge Comment: rx on chart - Physicians Team Primary Care Provider: Primary Care Yesi Holguin Attending Provider: Carlos Godoy Other Providers: Surgeons,[facility]
== END 2018-02-06 08:05 | disposition home or self-care (01) ==
LOC: PHED 10:42 → PHEDA 12:36 → INTOOBSV 12:36 → PHEDA 13:39 → PH3 16:33
PROVIDERS: ADMIT Surgery Trauma Surgery; ATTEND Surgery Trauma Surgery
PROC: LAPAPPY (ICD-10-PCS; 2018-02-05 14:24)
DX: K35.80 Unspecified acute appendicitis